=== PATIENT | female | born 1970 | race Asian ===

== ENCOUNTER 2016-10-21 16:17 | Emergency (ER) | payer OTHER ==
--- NOTE | 2016-10-21 17:24 | UC ---
UC General HPI - HPI Summary HPI Summary: Patient woke up with headache and is complaining of painful urination. she denied any sore throat upon questioning. - History of Current Complaint Stated Complaint: SORE THROAT, AND HEADACHE Time Seen by Provider: 10/21/16 17:06 Hx Obtained From: Patient Onset/Duration: Sudden Onset, Lasting Hours Timing: Constant Onset Severity: Mild Current Severity: Moderate Associated Signs & Symptoms: Positive: Dysuria, Headache - Allergy/Home Medications Allergies/Adverse Reactions: Allergies Allergy/AdvReac Type Severity Reaction Status Date / Time Amoxicillin Allergy Hives Verified 07/23/16 11:00 Doxycycline Allergy Rash Verified 07/23/16 11:00 PMH/Surg Hx/FS Hx/Imm Hx Previously Healthy: Yes Endocrine History Of: Denies: Diabetes, Thyroid Disease, Hyperthyroidism, Hypothyroidism, Dyslipidemia Cardiovascular History Of: Denies: Cardiac Disorders, Hypertension, Pacemaker/ICD, Myocardial Infarction , Congestive Heart Failure, Atrial Fibrillation, Deep Vein Thrombosis, Bleeding Disorders Respiratory History Of: Denies: COPD, Asthma, Bronchitis, Pneumonia, Pulmonary Embolism GI/ History Of: Denies: Gastroesophageal Reflux, Ulcer, Gastrointestinal Bleed, Gall Bladder Disease, Kidney Stones, Diverticulitis, Renal Disease, Urosepsis Neurological History Of: Reports: Migraine Denies: TIA, CVA, Dementia, Seizures Psychological History Of: Denies: Anxiety, Depression, Bipolar Disorder, Schizophrenia, Post Traumatic Stress Disorder Cancer History Of: Denies: Lung Cancer, Colorectal Cancer, Breast Cancer, Prostate Cancer, Cervical Cancer Other History Of: Negative For: HIV, Hepatitis B, Hepatitis C, Anticoagulant Therapy - Surgical History Surgical History: Yes Surgery Procedure, Year, and Place: Removal right breast mass. tonsilectomy - Family History Known Family History: Negative: Seizure Disorder, Blood Disorder - Social History Alcohol Use: None Substance Use Type: None Smoking Status (MU): Never Smoked Tobacco Have You Smoked in the Last Year: No Review of Systems Constitutional: Negative Skin: Negative Eyes: Negative ENT: Negative Respiratory: Negative Cardiovascular: Negative Gastrointestinal: Negative Genitourinary: Dysuria, Frequency, Urgency Motor: Negative Neurovascular: Negative Musculoskeletal: Negative Neurological: Headache All Other Systems Reviewed And Are Negative: Yes Physical Exam Triage Information Reviewed: Yes Appearance: Well-Nourished, Ill-Appearing, Pain Distress Vital Signs Reviewed: Yes Eye Exam: Normal Eyes: Positive: Conjunctiva Clear ENT Exam: Normal ENT: Positive: Normal ENT inspection, Hearing grossly normal, Pharynx normal, TMs normal Dental Exam: Normal Neck exam: Normal Neck: Positive: Supple, Nontender, No Lymphadenopathy Respiratory Exam: Normal Respiratory: Positive: Chest non-tender, Lungs clear, Normal breath sounds Cardiovascular Exam: Normal Cardiovascular: Positive: RRR, No Murmur, Pulses Normal - neg cva tenderness Abdomen Description: Positive: Nontender, No Organomegaly, Soft Bowel Sounds: Positive: Present Musculoskeletal Exam: Normal Musculoskeletal: Positive: Strength Intact, ROM Intact, No Edema Neurological Exam: Normal Psychological Exam: Normal Skin Exam: Normal Course/Dx - Course Course Of Treatment: hx obtained, exam performed, meds reviewed, UA obtained positiv for large leuks and blood. treated with keflex - Differential Dx - Multi-Symptom Provider Diagnoses: UTI. headache Discharge - Discharge Plan Condition: Stable Disposition: HOME Patient Education Materials: Urinary Tract Infection in Women (ED) Additional Instructions: Take the medication as directed. The pyridium will turn your bodily secretions orange. Increase fluid intake and use Ibuprofen as needed for your headache. Follow up with any worsening symptoms.
[2016-10-21 17:29] VITALS: BP 133/91
== END 2016-10-21 17:58 | disposition home or self-care (01) ==
LOC: UCEAST 16:17
DX: N39.0 Urinary tract infection, site not specified (principal); R51 Headache; R03.0 Elevated blood-pressure reading, without diagnosis of hypertension; Z88.1 Allergy status to other antibiotic agents
CPT/HCPCS: 87086; 99212; G0463

== ENCOUNTER 2019-02-12 15:21 | Emergency (ER) | payer OTHER ==
[2019-02-12 15:40] VITALS: BP 124/88
--- NOTE | 2019-02-12 15:58 | UC ---
Abdominal Pain Female HPI - HPI Summary HPI Summary: 48-year-old woman comes in with a chief complaint of left upper quadrant abdominal and left lower chest pain. Patient reports some back pain a couple days ago but that went away. In the middle the night she woke up with pain that 's in the left upper quadrant of her abdomen and also the left lower chest. To splinting pain. She is nauseous with it she also has a headache. She describes an 8 out of 10 pain. No rash. No chest congestion. Reports normal urination and normal bowel movement. No prior abdominal surgeries. Reports that eating does not make the pain worse. - History of Current Complaint Chief Complaint: UCAbdominalPain Stated Complaint: ABD PAIN Time Seen by Provider: 02/12/19 15:48 Hx Last Menstrual Period: [id number] Pain Intensity: 8 Allergies/Adverse Reactions: Allergies Allergy/AdvReac Type Severity Reaction Status Date / Time amoxicillin Allergy Hives Verified 02/12/19 15:40 doxycycline Allergy Hives Verified 02/12/19 15:40 PMH/Surg Hx/FS Hx/Imm Hx Previously Healthy: Yes Other History Of: Negative For: HIV, Hepatitis B, Hepatitis C, Anticoagulant Therapy - Surgical History Surgical History: Yes Surgery Procedure, Year, and Place: Removal right breast mass. tonsilectomy - Family History Known Family History: Negative: Cardiac Disease, Hypertension, Diabetes, Seizure Disorder, Blood Disorder - Social History Alcohol Use: None Substance Use Type: None Smoking Status (MU): Never Smoked Tobacco Have You Smoked in the Last Year: No Review of Systems All Other Systems Reviewed And Are Negative: Yes Constitutional: Positive: Negative Skin: Positive: Negative Eyes: Positive: Negative ENT: Positive: Negative Respiratory: Positive: Other - SEE HPI Cardiovascular: Positive: Other - SEE HPI Gastrointestinal: Positive: Nausea, Other - SEE HPI Genitourinary: Positive: Negative Motor: Positive: Negative Neurovascular: Positive: Negative Musculoskeletal: Positive: Negative Neurological: Positive: Negative Psychological: Positive: Negative Is Patient Immunocompromised?: No Physical Exam Triage Information Reviewed: Yes Appearance: Well-Appearing, Well-Nourished, Pain Distress - MILD Vital Signs: Initial Vital Signs Temp 98.4 F 02/12/19 15:35 Pulse 66 02/12/19 15:35 Resp 16 02/12/19 15:35 BP 124/88 02/12/19 15:35 Pulse Ox 100 02/12/19 15:35 Vital Signs Reviewed: Yes Eye Exam: Normal Eyes: Positive: Conjunctiva Clear Neck: Positive: Supple Respiratory: Positive: Lungs clear, Normal breath sounds, No respiratory distress Cardiovascular: Positive: RRR Abdomen Description: Positive: Other: - Patient is nontender in the right lower quadrant left lower quadrant and right upper quadrant of her abdomen. Is minimal tenderness in the epigastrium and left upper quadrant. When I push on the lower ribs patient reports that's where the pain is but in deeper. When I pushed on her posterior ribs there was no complaint of tenderness. Bowel Sounds: Positive: Present Musculoskeletal: Positive: Strength Intact, ROM Intact Neurological: Positive: Alert, Muscle Tone Normal Psychological: Positive: Age Appropriate Behavior Skin Exam: Normal Skin: Positive: Other - NO RASH AT SITE OF PAIN Abd Pain Female Course/Dx - Course Course Of Treatment: With combination of abdominal pain and left lower splinting chest pain I recommended further evaluation in the emergency department. Patient will go by POV with her family. - Differential Dx/Diagnosis Provider Diagnosis: Left upper quadrant pain, Chest pain Discharge - Sign-Out/Discharge Documenting (check all that apply): Patient Departure All imaging exams completed and their final reports reviewed: No Studies - Discharge Plan Condition: Stable Disposition: HOME-RECOMMEND TO ED Referrals: Esther Cherry MD [Primary Care Provider] - Additional Instructions: GO DIRECTLY TO THE EMERGENCY DEPARTMENT FOR FURTHER EVALUATION OF YOUR LEFT UPPER QUADRANT ABDOMINAL PAIN AND CHEST PAIN. - Billing Disposition and Condition Condition: STABLE Disposition: Home-Recommend to ED
== END 2019-02-12 16:09 | disposition home health service (06) ==
LOC: UCEAST 15:21
DX: R10.12 Left upper quadrant pain (principal); R07.9 Chest pain, unspecified
CPT/HCPCS: 99212; G0463

== ENCOUNTER 2019-02-12 16:22 | Emergency (ER) | payer OTHER ==
--- NOTE | 2019-02-12 16:51 | ED ---
Abdominal Pain/Female - HPI Summary HPI Summary: Pt is a 48 y/o F presenting to the ED with a chief complaint of abd pain. The pain came on at 0000 on 02/12/19, and she did not have it when she went to bed. Over time, it has worsened in severity, and it is accompanied by nausea. She denies urinary sx. - History of Current Complaint Chief Complaint: EDAbdPain Stated Complaint: ABD PAIN PER PT Time Seen by Provider: 02/12/19 16:33 Hx Obtained From: Patient Hx Last Menstrual Period: [id number] Onset/Duration: Sudden Onset, Lasting Hours, Still Present Timing: Hours Severity Initially: Moderate Severity Currently: Severe Pain Intensity: 8 Pain Scale Used: 0-10 Numeric Location: Discrete At: LUQ Radiates: No Character: Sharp Aggravating Factor(s): Nothing Alleviating Factor(s): Nothing Associated Signs and Symptoms: Positive: Nausea. Negative: Urinary Symptoms Allergies/Adverse Reactions: Allergies Allergy/AdvReac Type Severity Reaction Status Date / Time amoxicillin Allergy Hives Verified 02/12/19 16:31 doxycycline Allergy Hives Verified 02/12/19 16:31 PMH/Surg Hx/FS Hx/Imm Hx Previously Healthy: Yes Endocrine/Hematology History: Denies: Hx Anticoagulant Therapy, Hx Diabetes, Hx Thyroid Disease Cardiovascular History: Denies: Hx Congestive Heart Failure, Hx Deep Vein Thrombosis, Hx Hypertension , Hx Myocardial Infarction, Hx Pacemaker/ICD Respiratory History: Denies: Hx Asthma, Hx Chronic Obstructive Pulmonary Disease (COPD), Hx Lung Cancer, Hx Pneumonia, Hx Pulmonary Embolism GI History: Denies: Hx Gall Bladder Disease, Hx Gastrointestinal Bleed, Hx Ulcer, Hx Urosepsis History: Denies: Hx Kidney Stones, Hx Renal Disease Sensory History: Denies: Hx Hearing Aid Neurological History: Reports: Hx Headaches, Hx Migraine Denies: Hx Dementia, Hx Seizures, Hx Transient Ischemic Attacks (TIA) Psychiatric History: Denies: Hx Anxiety, Hx Depression, Hx Panic Disorder, Hx Schizophrenia, Hx Bipolar Disorder - Cancer History Hx Chemotherapy: No Hx Radiation Therapy: No - Surgical History Surgery Procedure, Year, and Place: Removal right breast mass. tonsilectomy Infectious Disease History: No Infectious Disease History: Denies: Hx Hepatitis, Hx Human Immunodeficiency Virus (HIV), History Other Infectious Disease, Traveled Outside the [place] in Last 30 Days - Family History Known Family History: Negative: Cardiac Disease, Hypertension, Diabetes, Seizure Disorder, Blood Disorder - Social History Alcohol Use: None Hx Substance Use: No Substance Use Type: Reports: None Hx Tobacco Use: No Smoking Status (MU): Never Smoked Tobacco Have You Smoked in the Last Year: No Review of Systems Positive: Abdominal Pain, Nausea Positive: no symptoms reported All Other Systems Reviewed And Are Negative: Yes Physical Exam - Summary Physical Exam Summary: Appearance: The patient is well-nourished in no acute distress and in no acute pain. Skin: The skin is warm and dry and skin color reflects adequate perfusion. HEENT: The head is normocephalic and atraumatic. The pupils are equal and reactive. The conjunctivae are clear and without drainage. Nares are patent and without drainage. Mouth reveals moist mucous membranes and the throat is without erythema and exudate. The external ears are intact. The ear canals are patent and without drainage. The tympanic membranes are intact. Neck: The neck is supple with full range of motion and non-tender. There are no carotid bruits. There is no neck vein distension. Respiratory: Chest is non-tender. Lungs are clear to auscultation and breath sounds are symmetrical and equal. Cardiovascular: Heart is regular rate and rhythm. There is no murmur or rub auscultated. There is no peripheral edema and pulses are symmetrical and equal. Abdomen: There is epigastric tenderness in the abd. There are normal bowel sounds heard in all four quadrants and there is no organomegaly palpated. Musculoskeletal: There is no back tenderness noted. Extremities are non-tender with full range of motion. There is good capillary refill. There is no peripheral edema or calf tenderness elicited. Neurological: Patient is alert and oriented to person, place and time. The patient has symmetrical motor strength in all four extremities. Cranial nerves are grossly intact. Deep tendon reflexes are symmetrical and equal in all four extremities. Psychiatric: The patient has an appropriate affect and does not exhibit any anxiety or depression. Triage Information Reviewed: Yes Vital Signs On Initial Exam: Initial Vitals Temp Pulse Resp BP Pulse Ox 98.4 F 62 16 133/95 99 02/12/19 16:28 02/12/19 16:28 02/12/19 16:28 02/12/19 16:28 02/12/19 16:28 Vital Signs Reviewed: Yes Diagnostics - Vital Signs Vital Signs Temp Pulse Resp BP Pulse Ox 02/12/19 16:28 98.4 F 62 16 133/95 99 - Laboratory Result Diagrams: 02/12/19 18:00 02/12/19 18:00 Lab Statement: Any lab studies that have been ordered have been reviewed, and results considered in the medical decision making process. Abdominal Pain Fem Course/Dx - Course Course Of Treatment: Ms. Zacarias developed an epigastric pain while she was sleeping last night. This continued to bother her all day and she gradually got nauseated and vomited. She denies any change in bowels or bladder. She was nontoxic in appearance with stable vitals but was tender in the epigastrium. So far it's noted that her labs are unremarkable as is an EKG. She is pending gallbladder ultrasound and will be turned over to Dr. Connor. - Diagnoses Provider Diagnoses: Acute abdominal pain Discharge - Sign-Out/Discharge Documenting (check all that apply): Patient Departure, Sign-Out Patient Signing out patient TO: Josh Herndon Receiving patient FROM: Josh Sánchez Patient Received Moderate/Deep Sedation with Procedure: No - Discharge Plan Condition: Improved Disposition: HOME Prescriptions: Ondansetron ODT TAB* [Zofran 4 MG Odt TAB*] 8 mg PO Q6H PRN #12 tab.odt PRN Reason: Nausea Prochlorperazine TAB* [Compazine Tab*] 10 mg PO Q6H PRN #12 tab PRN Reason: Nausea Patient Education Materials: Acute Abdominal Pain (ED) Referrals: Esther Cherry MD [Primary Care Provider] - 2 Days Additional Instructions: I have prescribed 2 different medications used to treat the symptoms of migraine , especially the nausea and vomiting. You can take these as needed if your symptoms recur. - Billing Disposition and Condition Condition: IMPROVED Disposition: Home - Attestation Statements Document Initiated by Scribe: Yes Documenting Scribe: Lesley Pope Provider For Whom Ryan is Documenting (Include Credential): Josh Sánchez MD. Scribe Attestation: Lesley Francisco, scribed for Josh Sánchez MD. on 02/13/19 at 0701. Scribe Documentation Reviewed: Yes Provider Attestation: The documentation as recorded by the Lesley green accurately reflects the service I personally performed and the decisions made by me, Josh Sánchez MD. Status of Scribe Document: Viewed
[2019-02-12] MEDS ORDERED: Pantoprazole IV* 40 MG IV ONE ×2 (17:35→23:10)
[2019-02-12 18:07] LABS: ABS Eosinophils 0.2 10^3/ul (0-0.6); ABS Lymphocytes 2.6 10^3/ul (1.0-4.8); ABS Monocytes 0.6 10^3/ul (0-0.8); ABS Neutrophils 3.8 10^3/ul (1.5-7.7); Eosinophil % 2.7 %; Hematocrit 38 % (35-47); Hemoglobin 12.6 g/dL (12.0-16.0); Lymphocyte % 35.9 %; Mean Corpuscular HGB Conc 33 g/dL (31-36); Mean Corpuscular Hemoglobin 26 pg (27-31); Mean Corpuscular Volume 79 fL (80-97); Mean Platelet Volume 9.9 fL (7.4-10.4); Nucleated Red Blood Cells % 0.3; Platelet Count 188 10^3/uL (150-450); Red Blood Count 4.77 10^6 /uL (3.70-4.87); Red Cell Distribution Width 15 % (10-15); White Blood Count 7.1 10^3/uL (3.5-10.8)
[2019-02-12] MEDS ORDERED: HYDROmorphone INJ1* 1 MG/ML SYRINGE IV SLOW PU ONE (18:23)
[2019-02-12] MEDS ORDERED: Ondansetron INJ* 2 MG/ML VIAL IV ONE ×2 (18:23→21:50)
[2019-02-12 18:28] LABS: Albumin 4.3 g/dL (3.2-5.2); Albumin/Globulin Ratio 1.2 (1-3); BUN/Creatinine Ratio 13.2 (8-20); C Reactive Protein 1.21 mg/L (<8.01); EGFR African American 111.3 (>60); Globulin 3.5 g/dL (2-4); Potassium 3.8 mmol/L (3.5-5.0); Total Bilirubin 0.5 mg/dL (0.2-1.0); Total Protein 7.8 g/dL (6.4-8.9)
--- NOTE | 2019-02-12 18:59 | ED ---
Progress - Progress Note Progress Note: This patient is a sign-out from Dr. Josh Sánchez to Dr. Josh Herndon at 1900 on 02/12/[address] shift change [address] A/P. - EKG/XRAY/CT Comments: 1919: Sinus bradycardia at 55 BPM, otherwise normal. Re-Evaluation - Re-Evaluation First Eval Re-Evaluation Time: 21:19 Comment: Discussed results with patient. Patient will be discharged home with dx of acute abdominal pain. Patient understands and agrees with this plan. Course/Dx - Course Course Of Treatment: This patient is a sign-out from Dr. Josh Sánchez to Dr. Josh Herndon at 1900 on 02/12/[address] shift change [address] A/P. In the ED course, patient received fluids and Zofran. After treatment and getting up out of the bed, patient is still vomiting. EKG at 1920 revealed sinus bradycardia at 55 BPM, P waves, QRS complex, and T waves are within normal limits, T waves and intervals are normal, no ischemic changes. US gallbladder revealed no sonographic findings to correlate with patient's symptomatology. Dr. Herndon has reviewed this radiology report. CT A/P revealed 1. No CT findings to correlate with patient's symptomatology. 2. Bilateral nephrolithiasis. 3. Suspected leiomyomatous uterus. 4. Left ovarian cyst. No followup imaging indicated per ACR guidelines. Dr. Herndon has reviewed this radiology report. Discussed results with patient. Discussed patient case with w Dr. Edwards, hospitalist, who recommended the patient be discharged after receiving more fluids and Zofran. Therefore, patient will be discharged home with dx of acute abdominal pain. Patient understands and agrees with this plan. - Diagnoses Provider Diagnoses: Acute abdominal pain - Provider Notifications Discussed Care Of Patient With: Herlinda Edwards Time Discussed With Above Provider: 23:08 Instructed by Provider To: Admit As Inpatient - Discussed patient case with w Dr. Edwards, hospitalist, who accepted the [place] [facility] [place]charge - Sign-Out/Discharge Documenting (check all that apply): Patient Departure - Discharge Patient Received Moderate/Deep Sedation with Procedure: No - Discharge Plan Condition: Improved Disposition: HOME Patient Education Materials: Acute Abdominal Pain (ED) Referrals: Esther Cherry MD [Primary Care Provider] - 2 Days - Attestation Statements Document Initiated by Scribe: Yes Documenting Scribe: Tanner Helton Provider For Whom Scribe is Documenting (Include Credential): Josh Herndon MD Scribe Attestation: I, Tanner Helton, scribed for Josh Herndon MD on 02/13/19 at 0016. Status of Scribe Document: Ready
[2019-02-12 19:13] LABS: Troponin I 0.02 ng/mL (<0.04)
[2019-02-12] MEDS ORDERED: NS 0.9% 1000 ML** 1,000 ML IV ONE (21:50)
[2019-02-13] MEDS ORDERED: NS 0.9% 1000 ML** 1,000 ML IV ONE (00:13)
[2019-02-13 01:20] VITALS: BP 129/90
--- NOTE | 2019-02-13 06:41 | PN ---
Hospitalist Progress Note Date of Service: 02/13/19 Hospitalist Consult Note PCP Jo Ann Code: Full CC: N/V Epigastric pain 48F [place] speaking woman PMH distant Lyme meningitis and resultant migraines who presents with one day N/V and epigastric pain. Pt reports that epigastric discomfrot woke her from sleep, described as a discomfort under ribs, does have mild associated LACEY without photo phnobphobia. 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 Pt reports feeling better on my discussion with her No new foods, no sick contacts, no diarrhea or constipation, no melena or hematemisis Labs: Wholly unremarkable Imaging: Fibroid uterus otherwise normal VS: NOrmal Originally slated to be d/c but hospitalist asked to consult as pt was orthostatic on standing. 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 abdominal migraine -On discussion with her in her [place] language pt is feeling much better, she can be tx symptomatically, discussed d/c with Zofran PRN, bland diet -Answered all questions from family and reviewed labs and images Stable for dc to home
== END 2019-02-13 01:13 | disposition home or self-care (01) ==
LOC: ED 16:22
DX: R10.9 Unspecified abdominal pain (principal); N83.202 Unspecified ovarian cyst, left side; R00.1 Bradycardia, unspecified; Z88.1 Allergy status to other antibiotic agents
CPT/HCPCS: 36415; 74176; 76705; 80053; 83605; 83690; 84484; 85025; 86140; 93005; 96361; 96374; 96375; 99285; J1170; J2405